=== PATIENT | female | born 1930 | race Caucasian/White ===

== ENCOUNTER 2017-06-02 06:27 | Day surgery (SDC) | payer MEDICARE ==
[~2017-06-02 06:27] MED LIST: Acetaminophen TAB* 325 MG PO PRN; Buffered Lidocaine 0.9% SYRIN* 5 ML/SYR SYRINGE INTRADERM ONE
[2017-06-02] MEDS ORDERED: fentaNYL* 50 MCG/ML 2 ML VIAL (100 MCG VIAL) ONE (07:42)
[2017-06-02] MEDS ORDERED: Midazolam* 1 MG/ML 2 ML VIAL (2 MG) ONE (07:42)
[2017-06-02 08:19] VITALS: BP 151/83
[2017-06-02] MEDS ORDERED: Neomycin/Polymy/Dex OPHTH.OIN* 3.5 GM ONE ×2 (08:29→14:09)
[2017-06-02] MEDS ORDERED: Tropicamide 1% OPTH.SOL* BTL ONE ×2 (08:29→14:09)
[2017-06-02] MEDS ORDERED: Lidocaine 1% MPF* 2 ML VIAL ONE ×2 (08:29→14:09)
[2017-06-02] MEDS ORDERED: Phenylephrine 2.5% OPTH.SOL* 2 ML BTL ONE ×2 (08:29→14:09)
[2017-06-02] MEDS ORDERED: Tetracaine 0.5% OPTH.SOL 4 ML* 1 DROP BTL ONE ×2 (08:29→14:09)
[2017-06-02] MEDS ORDERED: Cyclopentolate 1% OPTH.SOL* 2 ML BTL ONE ×2 (08:29→14:09)
[2017-06-02] MEDS ORDERED: Phenylephr/Ketorolac 1%/0.3% OPH DROP BTL ONE (08:30)
[2017-06-02] MEDS ORDERED: Ketorolac 0.5% OPHTH (NF) 0.5 % 5 ML BTL ONE ×2 (08:30→14:09)
[2017-06-02] MEDS ORDERED: Buffered Lidocaine 0.9% SYRIN* 5 ML/SYR SYRINGE ONE ×2 (08:30→14:09)
--- NOTE | 2017-06-02 16:22 | OP ---
DATE OF OPERATION: 06/02/17 [facility] DATE OF : 30 SURGEON: Dr. Chris Betancourt. GENERAL LABOR: None. ANESTHESIA: Topical with intravenous sedation. PRE-OP DIAGNOSIS: Cataract, right eye. POST-OP DIAGNOSIS: Cataract, right eye. OPERATIVE PROCEDURE: Phacoemulsification and cataract extraction with posterior chamber intraocular lens implant, right eye. COMPLICATIONS: None. BLOOD LOSS: None. DESCRIPTION OF PROCEDURE: The patient was brought to the operating room and received a small amount of intra-venous sedation. A drop of Tetracaine was placed in her right eye. She was prepped and draped in the usual sterile fashion for ophthalmic surgery and attention was directed to the right eye where a speculum was placed. A paracentesis was created at the 11 o'clock position and 0.1 cc of 1 percent preservative-free Lidocaine was injected into the anterior chamber followed by DisCoVisc. The eye was digitally stabilized while a 2.75 mm keratome was used to create a triplanar clear corneal incision at the 9 o'clock position. A continuous curvilinear capsulorrhexis was created with a cystotome and Utrata forceps. BSS on a cannula was used to hydrodissect the lens from the capsule. Phacoemulsification was performed in a divide-and- conquer technique to create four fragments which were removed. Residual cortical material was removed with irrigation and aspiration. DisCoVisc was used to inflate the capsular bag and an SN60WF 27.5 diopter lens was folded and inserted into the capsular bag. DisCoVisc was removed using irrigation and aspiration. BSS on a cannula was used to hydrate the corneal stroma and seal the wound. At the end of the case the pupil was round and the lens was centered. The eye was of normal pressure and the wound was water tight. The speculum was removed and topical Maxitrol ointment was placed on the surface of the eye. The eye was closed, patched and shielded and the patient was sent to the recovery room in stable condition with post operative instructions and follow-up appointment given. [id number]/[facility] #: [id number] BRANDON
== END 2017-06-02 08:29 | disposition home or self-care (01) ==
LOC: OREAST 06:27
PROVIDERS: ATTEND Ophthalmology
DX: H25.11 Age-related nuclear cataract, right eye (principal); E11.9 Type 2 diabetes mellitus without complications; Z79.84 Long term (current) use of oral hypoglycemic drugs; I10 Essential (primary) hypertension; Z85.038 Personal history of other malignant neoplasm of large intestine; Z85.3 Personal history of malignant neoplasm of breast
CPT/HCPCS: A9270-GY; C9447; J2250; J3010; V2632

== ENCOUNTER 2017-06-09 07:19 | Day surgery (SDC) | payer MEDICARE ==
[~2017-06-09 07:19] MED LIST changes: -Acetaminophen TAB* 325 MG PO PRN
[2017-06-09] MEDS ORDERED: Midazolam* 1 MG/ML 2 ML VIAL (2 MG) ONE (08:48)
[2017-06-09 09:30] VITALS: BP 138/83
[2017-06-09] MEDS ORDERED: Phenylephr/Ketorolac 1%/0.3% OPH DROP BTL ONE (09:53)
--- NOTE | 2017-06-09 09:57 | OP ---
DATE OF OPERATION/DATE OF DICTATION: 06/09/2017 - [facility] DATE OF : 1930. SURGEON: Dr. Chris Betancourt. SANDING MACHINE OPERATOR: None. ANESTHESIA: Topical with intravenous sedation. PRE-OP DIAGNOSIS: Cataract, left eye. POST-OP DIAGNOSIS: Cataract, left eye. OPERATIVE PROCEDURE: Phacoemulsification and cataract extraction with posterior chamber intraocular lens implant, left eye. COMPLICATIONS: None. BLOOD LOSS: None. DESCRIPTION OF PROCEDURE: The patient was brought to the operating room and received a small amount of intravenous sedation. A drop of Tetracaine was placed in her left eye. She was prepped and draped in the usual sterile fashion for ophthalmic surgery and attention was directed to the left eye where a speculum was placed. A paracentesis was created at the 5 o'clock position and 0.1 cc of 1 percent preservative-free Lidocaine was injected into the anterior chamber followed by DisCoVisc. The eye was digitally stabilized while a 2.75 mm keratome was used to create a triplanar clear corneal incision at the 3 o'clock position. A continuous curvilinear capsulorrhexis was created with a cystotome and Utrata forceps. BSS on a cannula was used to hydrodissect the lens from the capsule. Phacoemulsification was performed in a divide-and- conquer technique to create four fragments which were removed. Residual cortical material was removed with irrigation and aspiration. DisCoVisc was used to inflate the capsular bag and an AUOOTO 26.5 diopter lens was folded and inserted into the capsular bag. DisCoVisc was removed using irrigation and aspiration. BSS on a cannula was used to hydrate the corneal stroma and seal the wound. At the end of the case the pupil was round and the lens was centered. The eye was of normal pressure and the wound was water tight. The speculum was removed and topical Maxitrol ointment was placed on the surface of the eye. The eye was closed, patched and shielded and the patient was sent to the recovery room in stable condition with post operative instructions and follow-up appointment given. [id number]/[facility]PS #: [id number] MTDD
[2017-06-09] MEDS ORDERED: Lidocaine 1% MPF* 2 ML VIAL ONE (15:08)
[2017-06-09] MEDS ORDERED: Ketorolac 0.5% OPHTH (NF) 0.5 % 5 ML BTL ONE (15:08)
[2017-06-09] MEDS ORDERED: Tetracaine 0.5% OPTH.SOL 4 ML* 1 DROP BTL ONE (15:08)
[2017-06-09] MEDS ORDERED: Phenylephrine 2.5% OPTH.SOL* 2 ML BTL ONE (15:08)
[2017-06-09] MEDS ORDERED: Cyclopentolate 1% OPTH.SOL* 2 ML BTL ONE (15:08)
[2017-06-09] MEDS ORDERED: Tropicamide 1% OPTH.SOL* BTL ONE (15:08)
[2017-06-09] MEDS ORDERED: Neomycin/Polymy/Dex OPHTH.OIN* 3.5 GM ONE (15:08)
== END 2017-06-09 09:21 | disposition home or self-care (01) ==
LOC: OREAST 07:19
PROVIDERS: ATTEND Ophthalmology
DX: H25.12 Age-related nuclear cataract, left eye (principal); I10 Essential (primary) hypertension; E11.9 Type 2 diabetes mellitus without complications; Z79.84 Long term (current) use of oral hypoglycemic drugs; M19.90 Unspecified osteoarthritis, unspecified site; Z85.3 Personal history of malignant neoplasm of breast
CPT/HCPCS: A9270-GY; C9447; J2250; V2632

== ENCOUNTER 2019-09-20 06:21 | Day surgery (SDC) | payer MEDICARE ==
[~2019-09-20 06:21] MED LIST changes: +Acetaminophen TAB* 325 MG PO PRN; -Buffered Lidocaine 0.9% SYRIN* 5 ML/SYR SYRINGE INTRADERM ONE; +Buffered Lidocaine 1% SYRIN* 1 ML/SYRINGE INTRADERM ONE
[2019-09-20] MEDS ORDERED: Bacitracin OPHTH.OINT* 3.5 GM ONE (07:15)
[2019-09-20] MEDS ORDERED: Lidocaine 1% w EPI 1:100,000* MDV 20 ML VIAL ONE (07:16)
[2019-09-20] MEDS ORDERED: BSS OPTH.SOL* BTL ONE (07:16)
[2019-09-20] MEDS ORDERED: fentaNYL* 50 MCG/ML 2 ML VIAL (100 MCG VIAL) ONE (07:19)
[2019-09-20] MEDS ORDERED: Propofol* 10 MG/ML 20 ML BTL ONE (07:20)
[2019-09-20] MEDS ORDERED: Lidocaine 2% PF * 5 ML VIAL ONE (07:20)
[2019-09-20 08:17] VITALS: BP 124/73
[2019-09-20] MEDS ORDERED: Phenylephrine OPHTH SOL 2.5%* 2 ML ONE (11:12)
[2019-09-20] MEDS ORDERED: Ketorolac 0.5% OPHTH (NF) 0.5 % 5 ML BTL ONE (11:12)
[2019-09-20] MEDS ORDERED: Lidocaine 1% MPF ** 5 ML VIAL ONE (11:12)
[2019-09-20] MEDS ORDERED: Tropicamide 1% OPTH.SOL* BTL ONE (11:12)
[2019-09-20] MEDS ORDERED: Neomycin/Polymy/Dex OPHTH.OIN* 3.5 GM ONE (11:12)
[2019-09-20] MEDS ORDERED: Tetracaine 0.5% OPTH.SOL 4 ML* 1 DROP BTL ONE (11:12)
[2019-09-20] MEDS ORDERED: Cyclopentolate 1% OPTH.SOL* 2 ML BTL ONE (11:12)
--- NOTE | 2019-09-20 13:13 | OP ---
PROCEDURE REPORT: DATE OF OPERATION: 09/20/19 DATE OF : 30 SURGEON: Dr. Betancourt. [employer]: None. ANESTHESIA: Local MAC. PRE-OP DIAGNOSIS: Ectropion, left lower lid. POST-OP DIAGNOSIS: Ectropion, left lower lid. OPERATIVE PROCEDURE: Lateral tarsal strip repair of entropion, left lower lid. COMPLICATIONS: None. BLOOD LOSS: Minimal. DESCRIPTION OF PROCEDURE: The patient was brought to the operating room and received intravenous sed ation. A drop of tetracaine was placed into her left eye. Approximately 2 cc of 1% lidocaine with ep inephrine was injected into the lateral canthal angle and lateral left lower lid. The patient was [place] bsequently prepped and draped in the usual sterile fashion for ophthalmic surgery and attention was d irected to the left eye. A lateral canthotomy was created with a Trevor scissor. An inferior canthol ysis followed. Once the lower lid was mobile, the anterior and posterior lamella of the eyelid were at the wallace line. The tarsal plate was grasped. The conjunctiva was cut horizontally misti g the inferior aspect of the tarsal plate to the extent of the anterior posterior lamella dissection. The superior edge of the tarsal plate was trimmed of tissue. The posterior aspect of the tarsal pl ate was gently scrapped with a 15 Bard-Bishop blade to remove conjunctival tissue from it. The tars al plate was then pulled to the lateral orbital rim to determine how much tarsus should be excised. Approximately, 7 mm of tarsus was excised. A 4.0 Vicryl suture was placed to the tarsus about 1.5 mm away from the raw margin. The needle was then placed to the periosteum in the lateral orbital rim j ust superior to the center and slightly posterior. A second similar suture was passed. These 2 sutu res were tied securely drawing the eyelid via the existing tarsus to a proper location. The sutures were tied securely and trimmed. The skin was then closed with interrupted 6-0 silk sutures. There wa s minimal bleeding and no cauterization was required. The position of the eyelid at the end of the s urgery was excellent being slightly overcorrected. Topical bacitracin ointment was applied into the conjunctival fornix temporally as well as on to the skin surface where the wound was. The patient wa s transferred to the recovery room in stable condition with postop instructions and followup appointm ent given. [id number]/[facility] #: [id number]
== END 2019-09-20 08:38 | disposition home or self-care (01) ==
LOC: OREAST 06:21
PROVIDERS: ATTEND Ophthalmology
DX: H02.135 Senile ectropion of left lower eyelid (principal); I10 Essential (primary) hypertension; E11.65 Type 2 diabetes mellitus with hyperglycemia; Z79.84 Long term (current) use of oral hypoglycemic drugs; Z79.82 Long term (current) use of aspirin; Z85.3 Personal history of malignant neoplasm of breast; Z85.038 Personal history of other malignant neoplasm of large intestine
CPT/HCPCS: A9270-GY; J2704; J3010